=== PATIENT | male | born 1965 | race Caucasian/White ===

== ENCOUNTER 2016-08-30 10:37 | Emergency (ER) | payer OTHER ==
[2016-08-30 12:08] VITALS: BP 143/94
--- NOTE | 2016-08-30 12:15 | UC ---
Throat Pain/Nasal Naeem HPI - HPI Summary HPI Summary: complaint of nasal congestion cough cough with purulent sputum sore throat woke up this morning and has sinsus pressure in his face and forehead' bilateral ear pressure frequent headaches taking aspirin and tylenol for symptoms without relief and drinking fluids denies fever and chills - History of Current Complaint Chief Complaint: UCRespiratory Stated Complaint: COUGH,SINUSES,EARS Time Seen by Provider: 08/30/16 12:11 Hx Obtained From: Patient - Allergies/Home Medications Allergies/Adverse Reactions: Allergies Allergy/AdvReac Type Severity Reaction Status Date / Time Guaifenesin [From Mucinex DM] Allergy Intermediate DISORIENTED, Verified 11:58 ANXIOUS Yellow Dye [From Mucinex DM] Allergy Intermediate DISORIENTED, Verified 11:58 ANXIOUS Dextromethorphan AdvReac Intermediate DISORIENTED, Verified 08/30/16 11:58 [From Mucinex DM] ANXIOUS Home Medications: Home Medications Acetaminophen TAB* [Tylenol TAB*] 650 mg PO Q4H PRN 08/30/16 [History Confirmed 08/30/16] PMH/Surg Hx/FS Hx/Imm Hx Previously Healthy: Yes Endocrine History Of: Denies: Diabetes, Thyroid Disease Cardiovascular History Of: Denies: Cardiac Disorders, Hypertension Respiratory History Of: Denies: COPD, Asthma GI/ History Of: Denies: Ulcer - Surgical History Surgical History: None - Family History Known Family History: Positive: Hypertension - parents Negative: Cardiac Disease, Diabetes - Social History Occupation: Employed Full-time Lives: With Family Alcohol Use: Daily Alcohol Amount: 1 beer/day Substance Use Type: Marijuana Smoking Status (MU): Never Smoked Tobacco - Immunization History Most Recent Tetanus Shot: 2005 Review of Systems Constitutional: Negative Skin: Negative Eyes: Negative ENT: Sore Throat, Ear Ache, Nasal Discharge Respiratory: Cough Cardiovascular: Negative Gastrointestinal: Negative Genitourinary: Negative Motor: Negative Neurovascular: Negative Musculoskeletal: Negative Neurological: Headache Psychological: Negative All Other Systems Reviewed And Are Negative: Yes Physical Exam Triage Information Reviewed: Yes Appearance: No Pain Distress, Well-Nourished Vital Signs: Initial Vital Signs Temp 98.3 F 08/30/16 11:59 Pulse 74 08/30/16 11:59 Resp 18 08/30/16 11:59 BP 143/94 08/30/16 11:59 Pulse Ox 99 02/16/17 11:59 Vital Signs Reviewed: Yes Eyes: Positive: Conjunctiva Clear ENT: Positive: Pharyngeal erythema, Nasal congestion, TMs normal, Other: - frontal and maxillary sinus tenderness. Negative: TM bulging, TM red, Tonsillar swelling, Tonsillar exudate Neck: Positive: No Lymphadenopathy Respiratory: Positive: Lungs clear, Normal breath sounds, No respiratory distress Cardiovascular: Positive: RRR, No Murmur, Pulses Normal Abdomen Description: Positive: Nontender, Soft Bowel Sounds: Positive: Present Musculoskeletal: Positive: No Edema Neurological: Positive: Alert Psychological Exam: Normal Skin Exam: Normal Throat Pain/Nasal Course/Dx - Differential Dx/Diagnosis Differential Diagnosis/HQI/PQRI: Influenza, Sinusitis, URI Provider Diagnoses: sinusitis Discharge - Discharge Plan Condition: Stable Disposition: HOME Prescriptions: Amoxicillin/Clavulanate TAB* [Augmentin TAB 875*] 875 mg PO BID #20 tab Benzonatate CAP* [Tessalon CAP*] 100 mg PO TID #30 cap Patient Education Materials: Sinusitis (ED) Referrals: Cora Randolph MD [Primary Care Provider] - Additional Instructions: Start antibiotic as directed Increase fluids and rest Take acetaminophen or ibuprofen for fever or pain Please review your discharge instructions. If your symptoms do not improve please call your primary care provider or return to urgent care
== END 2016-08-30 12:29 | disposition home or self-care (01) ==
LOC: UCCORT 10:37
DX: J32.9 Chronic sinusitis, unspecified (principal); F10.99 Alcohol use, unspecified with unspecified alcohol-induced disorder; F12.90 Cannabis use, unspecified, uncomplicated
CPT/HCPCS: 99212; G0463